=== PATIENT | female | born 1970 | race African-American/Black ===

== ENCOUNTER 2021-03-18 14:41 | Emergency (ER) | payer SELFPAY ==
[~2021-03-18] VITALS: Ht 175.3 cm; Wt 82.0 kg
[2021-03-18 17:26] VITALS: BP 124/83
== END 2021-03-18 17:45 | disposition home or self-care (01) ==
LOC: ER 14:41
DX: R00.2 Palpitations (principal); R20.2 Paresthesia of skin; R09.89 Other specified symptoms and signs involving the circulatory and respiratory systems; T80.52XA Anaphylactic reaction due to vaccination, initial encounter; F41.0 Panic disorder [episodic paroxysmal anxiety]; Y92.89 Other specified places as the place of occurrence of the external cause
CPT/HCPCS: 93005; 99283